=== PATIENT | female | born 1955 | race Caucasian/White ===

== ENCOUNTER 2021-08-16 12:15 | Emergency (ER) | payer MEDICARE, OTHER ==
[2021-08-16 14:07] LABS: Bilirubin Neg (Negative); Blood, Urine Negative (Negative); Clarity Clear (Clear); Glucose, Urine (Dipstick) Normal (Negative); Ketone, Urine Negative (Negative); Leukocyte Negative (Negative); Nitrite Negative (Negative); Protein, Urine (Dipstick) Negative (Neg-Trace); Specific Gravity, Urine 1.005 (1.002-1.036); Urobilinogen Normal mg/dL (Less than 2)
== END 2021-08-16 15:10 | disposition home or self-care (01) ==
LOC: CSHERS 12:15
DX: R35.0 Frequency of micturition (principal)
CPT/HCPCS: 81003; 87086; 99283

== ENCOUNTER 2022-09-02 07:17 | Emergency (ER) | payer MEDICARE, OTHER ==
[2022-09-02 08:57] LABS: #Eosinphils 0.1 10x3/uL (0.0-0.5); #Monocytes 0.5 10x3/uL (0.0-1.1); #Neutrophils 2.1 10x3/uL (1.5-8.4); %Eosinophils 2.3 % (0.0-6.0); %Lymphocytes 31.4 % (18.0-47.0); %Monocytes 12.2 % (0.0-10.0); %Neutrophils 53.1 % (40.0-75.0); Hemoglobin 12.6 g/dL (12.0-15.5); Mean Corpuscular HGB CONC 34.1 g/dL (32.0-36.0); Mean Corpuscular Hemoglobin 32.6 pg (27.0-33.0); Mean Corpuscular Volume 95.3 fl (81.6-98.3); Platelet Count 220 10x3/uL (150-450); RBC Distribution Width 12.3 % (11.5-14.5); Red Blood Cell (RBC) Count 3.87 10x6/uL (3.90-5.03); White Blood Cell (WBC) Count 3.9 10x3/uL (3.5-10.5)
[2022-09-02 09:10] LABS: ALT (SGPT) 12 U/L (8-55); AST (SGOT) 20 U/L (5-34); Albumin 4.1 g/dL (3.4-4.8); Alkaline Phosphatase 55 U/L (40-110); Anion Gap 14 mmol/L (10-20); BUN (Urea Nitrogen) 12 mg/dL (9.8-20.1); Bilirubin, Total 0.4 mg/dL (0.2-1.2); Calc. Creatinine Clearance 0 mL/min (70-130); Calcium 8.8 mg/dL (7.8-10.44); Carbon Dioxide 21 mmol/L (23-31); Chloride 101 mmol/L (98-107); Estimated GFR 63; Globulin 2.5 g/dL (2.4-3.5); Glucose 77 mg/dL (80-115); Potassium 4.4 mmol/L (3.5-5.1); Protein, Total 6.6 g/dL (5.8-8.1); Sodium 132 mmol/L (136-145)
[2022-09-02] MEDS ORDERED: Dexamethasone 10 MG/ML VIAL ONE (09:19)
[2022-09-02] MEDS ORDERED: Prochlorperazine 10 MG/2 ML VIAL ONE (09:19)
[2022-09-02] MEDS ORDERED: diphenhydrAMINE 50 MG/ML VIAL ONE (09:20)
[2022-09-02] MEDS ORDERED: Iopamidol 370 76% 100 ML VIAL ONE (10:21)
[2022-09-02] MEDS ORDERED: Magnesium 2 GM/50 ML BAG (IN WATER) ONE (10:51)
== END 2022-09-02 12:36 | disposition home or self-care (01) ==
LOC: CSHERS 07:17
DX: G43.909 Migraine, unspecified, not intractable, without status migrainosus (principal)
CPT/HCPCS: 36415; 70496; 70498; 80053; 85025; 96365; 96367; 96375; J0780; J1100; J1200; J3475; Q9967

== ENCOUNTER 2022-09-15 16:55 | Outpatient (CLI) | payer MEDICARE, OTHER | END 2022-09-15 16:56 | disposition home or self-care (01) | LOC: CSHRAD 16:55 | PROVIDERS: ATTEND Psychiatry & Neurology Neurology | DX: G44.309 Post-traumatic headache, unspecified, not intractable (principal); Z98.890 Other specified postprocedural states; M47.812 Spondylosis without myelopathy or radiculopathy, cervical region | CPT/HCPCS: 72040 ==

== ENCOUNTER 2022-10-14 12:56 | Outpatient (CLI) | payer MEDICARE, OTHER | END 2022-10-14 12:57 | disposition home or self-care (01) | LOC: CSHMRI 12:56 | PROVIDERS: ATTEND Psychiatry & Neurology Neurology | DX: G44.86 Cervicogenic headache (principal); Z98.1 Arthrodesis status; M47.812 Spondylosis without myelopathy or radiculopathy, cervical region | CPT/HCPCS: 70551; 72141 ==

== ENCOUNTER 2022-11-09 14:27 | Outpatient (CLI) | payer MEDICARE, OTHER | END 2022-11-09 14:28 | disposition home or self-care (01) | LOC: CSHRAD 14:27 | PROVIDERS: ATTEND Neurological Surgery | DX: S09.90XS Unspecified injury of head, sequela (principal); R51.9 Headache, unspecified; M47.812 Spondylosis without myelopathy or radiculopathy, cervical region; Z98.890 Other specified postprocedural states | CPT/HCPCS: 72050 ==

== ENCOUNTER 2022-12-12 15:01 | Outpatient (CLI) | payer MEDICARE, OTHER | END 2022-12-12 15:02 | disposition home or self-care (01) | LOC: CSHMAMMO 15:01 | PROVIDERS: ATTEND Family Medicine | DX: Z12.31 Encounter for screening mammogram for malignant neoplasm of breast (principal); Z80.3 Family history of malignant neoplasm of breast; Z98.890 Other specified postprocedural states | CPT/HCPCS: 77063; 77067 ==

== ENCOUNTER 2022-12-19 11:06 | Outpatient (CLI) | payer MEDICARE, OTHER | END 2022-12-19 11:07 | disposition home or self-care (01) | LOC: CSHRAD 11:06 | PROVIDERS: ATTEND Family Medicine | DX: L03.116 Cellulitis of left lower limb (principal); L03.115 Cellulitis of right lower limb; M19.072 Primary osteoarthritis, left ankle and foot; S93.402A Sprain of unspecified ligament of left ankle, initial encounter ==

== ENCOUNTER 2022-12-21 14:01 | Emergency (ER) | payer MEDICARE, OTHER ==
[2022-12-21 16:18] LABS: #Eosinphils 0.1 10x3/uL (0.0-0.5); #Monocytes 0.6 10x3/uL (0.0-1.1); #Neutrophils 3.9 10x3/uL (1.5-8.4); %Basophils 0.4 % (0.0-2.0); %Eosinophils 1.4 % (0.0-6.0); %Monocytes 10.4 % (0.0-10.0); %Neutrophils 67.6 % (40.0-75.0); Hematocrit 34.4 % (34.9-44.5); Hemoglobin 11.7 g/dL (12.0-15.5); Mean Corpuscular Hemoglobin 32.8 pg (27.0-33.0); Mean Corpuscular Volume 96.4 fl (81.6-98.3); Mean Platelet Volume 9.8 fl (7.4-10.4); Platelet Count 189 10x3/uL (150-450); RBC Distribution Width 12.4 % (11.5-14.5); Red Blood Cell (RBC) Count 3.57 10x6/uL (3.90-5.03); White Blood Cell (WBC) Count 5.7 10x3/uL (3.5-10.5)
[2022-12-21 16:33] LABS: ALT (SGPT) 16 U/L (8-55); AST (SGOT) 27 U/L (5-34); Albumin 3.7 g/dL (3.4-4.8); Alkaline Phosphatase 43 U/L (40-110); Anion Gap 13 mmol/L (10-20); BUN (Urea Nitrogen) 11 mg/dL (9.8-20.1); Bilirubin, Total 0.2 mg/dL (0.2-1.2); Calc. Creatinine Clearance 0 mL/min (70-130); Calcium 8.8 mg/dL (7.8-10.44); Carbon Dioxide 23 mmol/L (23-31); Chloride 105 mmol/L (98-107); Estimated GFR 66; Globulin 2.8 g/dL (2.4-3.5); Glucose 91 mg/dL (80-115); Potassium 4.3 mmol/L (3.5-5.1); Protein, Total 6.5 g/dL (5.8-8.1); Sodium 137 mmol/L (136-145)
== END 2022-12-21 17:10 | disposition home or self-care (01) ==
LOC: CSHERS 14:01
DX: M25.571 Pain in right ankle and joints of right foot (principal)
CPT/HCPCS: 36415; 80053; 85025; 86140